=== PATIENT | female | born 1985 | race Hispanic/Latino ===

== ENCOUNTER → 2018-03-29 | Outpatient (REF) | payer OTHER | LOC: M SFHCLERA 15:58 | PROVIDERS: ATTEND Physician Assistant | DX: N39.0 Urinary tract infection, site not specified (principal) ==

== ENCOUNTER 2023-03-22 17:33 | Emergency (ER) | payer BC, OTHER, SELFPAY ==
[~2023-03-22] VITALS: Ht 157.5 cm; Wt 67.2 kg
[2023-03-22 19:55] VITALS: BP 120/74; TEMP 98.9; O2SAT 99
[2023-03-22] MEDS ORDERED: OCUF0.25 OP (20:25)
[2023-03-22] MEDS: NEOSPORIN OINT 0.9 GM PKT TOP ONE (20:30)
== END 2023-03-22 20:40 | disposition home or self-care (01) ==
LOC: M ED 17:33 → EDBD 17:33 → M ED 20:40
DX: S05.02XA Injury of conjunctiva and corneal abrasion without foreign body, left eye, initial encounter (principal); S05.12XA Contusion of eyeball and orbital tissues, left eye, initial encounter; H11.32 Conjunctival hemorrhage, left eye; Y04.8XXA Assault by other bodily force, initial encounter; S60.222A Contusion of left hand, initial encounter; S60.512A Abrasion of left hand, initial encounter; V89.2XXA Person injured in unspecified motor-vehicle accident, traffic, initial encounter; Y92.410 Unspecified street and highway as the place of occurrence of the external cause; Y93.9 Activity, unspecified; Y99.9 Unspecified external cause status